=== PATIENT | male | born 1935 | race Caucasian/White ===

== ENCOUNTER 2017-09-09 13:10 | Emergency (ER) | payer OTHER, MEDICAID ==
[~2017-09-09] VITALS: Ht 172.7 cm; Wt 117.9 kg
[~2017-09-09 13:10] MED LIST: ALLO100T PO; AMLO5TAB92 PO; DITXL5 PO; DIVA500T7 PO; GABA-531 PO; GLIM2TAB2 PO; LEVO100T9 PO; LIP10 PO; MIRA50TA PO; SITA100T7 PO; TAMS-11 PO
[2017-09-09 13:14] VITALS: BP_SYST 128
[2017-09-09] MEDS ORDERED: LEVOFLOXACIN 500 MG/D5W 100 ML IV ONE (13:30)
[2017-09-09] MEDS ORDERED: ALBUTEROL SULFATE 0.083% 2.5 MG/3 ML VIAL.NEB INH ONE (13:30)
[2017-09-09 14:25] LABS: BASOPHILS % (AUTO) 0.3 % (0.0-2.0); EOSINOPHILS # (AUTO) 0.1 K/uL (0.0-0.4); EOSINOPHILS % (AUTO) 1.4 % (0.0-4.0); HEMATOCRIT 38.6 % (36-54); HEMOGLOBIN 12.8 g/dL (14.0-18.0); LYMPHOCYTES # (AUTO) 2.6 K/uL (1.0-5.5); LYMPHOCYTES % (AUTO) 37.2 % (20.5-51.5); MEAN CORPUSCULAR HEMOGLOBIN 31 pg (27-31); MEAN CORPUSCULAR HGB CONC 33 % (32-36); MEAN CORPUSCULAR VOLUME 93 fL (79.0-98.0); MONOCYTES # (AUTO) 0.7 K/uL (0.0-1.0); MONOCYTES % (AUTO) 9.6 % (1.7-9.3); NEUTROPHILS # (AUTO) 3.7 K/uL (1.8-7.7); NEUTROPHILS % (AUTO) 51.5 % (40.0-70.0); PLATELET COUNT (AUTO) 77 K/uL (130-430); RED BLOOD CELL COUNT(AUTO) 4.14 MIL/uL (4.2-6.2); RED CELL DISTRIBUTION WIDTH 13.8 % (9.0-15.0); WHITE BLOOD COUNT (AUTO) 7.1 K/uL (4.8-10.8)
[2017-09-09 14:46] LABS: INR 1.2 (0.80-1.20); PROTHROMBIN TIME 11.9 SECS (9.5-12.5)
[2017-09-09 14:57] LABS: ANION GAP 7 (5-15); CALCIUM 8.8 mg/dL (8.4-11.0); CHLORIDE 105 mmol/L (98-107); CREATININE 1.18 mg/dL (0.55-1.30); GLUCOSE 178 mg/dL (70-99); POTASSIUM 3.3 mmol/L (3.5-5.1); SODIUM SERUM 138 mmol/L (136-145); UREA NITROGEN, BLOOD 21 mg/dL (8-21)
[2017-09-09 15:01] LABS: ALANINE AMINOTRANSFERASE 34 U/L (12-78); ALBUMIN 3.5 g/dL (3.4-4.8); ASPARTATE AMINOTRANSFERASE 26 U/L (10-37); TOTAL BILIRUBIN 0.3 mg/dL (0.0-1.0)
[2017-09-09] MEDS ORDERED: POTASSIUM CHLORIDE 20 MEQ TAB.PRT.SR PO ONE (15:45)
[2017-09-09 16:20] VITALS: BP_SYST 125
== END 2017-09-09 16:20 | disposition home or self-care (01) ==
LOC: SED 13:10
DX: R53.1 Weakness (principal); F41.9 Anxiety disorder, unspecified; G47.9 Sleep disorder, unspecified; J44.9 Chronic obstructive pulmonary disease, unspecified; E11.9 Type 2 diabetes mellitus without complications; I10 Essential (primary) hypertension; Z86.73 Personal history of transient ischemic attack (TIA), and cerebral infarction without residual deficits; Z79.899 Other long term (current) drug therapy
CPT/HCPCS: 36415; 71045; 80053; 83605; 83880; 84484; 85025; 85610; 86710; 87040; 93005; 94640; 96365; 99285; J1956

== ENCOUNTER 2017-10-01 14:34 | Emergency (ER) | payer OTHER, MEDICAID ==
[~2017-10-01] VITALS: Ht 177.8 cm; Wt 117.9 kg
[2017-10-01 15:01] VITALS: BP_SYST 146
[2017-10-01 16:15] VITALS: BP_SYST 146
[2017-10-01] MEDS ORDERED: LORazepam 1 MG TABLET PO ONE (16:30)
== END 2017-10-01 16:15 | disposition home or self-care (01) ==
LOC: SED 14:34
DX: D16.4 Benign neoplasm of bones of skull and face (principal); F41.9 Anxiety disorder, unspecified; J44.9 Chronic obstructive pulmonary disease, unspecified; E11.9 Type 2 diabetes mellitus without complications; I10 Essential (primary) hypertension; Z86.73 Personal history of transient ischemic attack (TIA), and cerebral infarction without residual deficits; Z79.899 Other long term (current) drug therapy
CPT/HCPCS: 82962; 99283

== ENCOUNTER 2018-03-18 22:45 | Inpatient (IN) | payer OTHER, MEDICAID ==
[~2018-03-18] VITALS: Ht 175.3 cm; Wt 123.4 kg
[~2018-03-18 22:45] MED LIST changes: +SITA100T11 PO; -SITA100T7 PO
[2018-03-18 22:46] VITALS: BP_SYST 156
--- NOTE | 2018-03-18 22:46 | NUR ---
ER at [facility] examining patient.
[2018-03-18] MEDS ORDERED: KETOROLAC TROMETHAMINE 30 MG VIAL IVP ONE (23:00)
--- NOTE | 2018-03-18 23:00 | NUR ---
Patient to ER bed 02 to gown for evaluation. Side rails up.
[2018-03-18 23:09] LABS: BASOPHILS # (AUTO) 0.1 K/uL (0.0-0.2); BASOPHILS % (AUTO) 1.4 % (0.0-2.0); EOSINOPHILS # (AUTO) 0.2 K/uL (0.0-0.4); EOSINOPHILS % (AUTO) 3.1 % (0.0-4.0); HEMATOCRIT 40.2 % (36-54); HEMOGLOBIN 13.5 g/dL (14.0-18.0); LYMPHOCYTES # (AUTO) 2.1 K/uL (1.0-5.5); MEAN CORPUSCULAR HEMOGLOBIN 32 pg (27-31); MEAN CORPUSCULAR HGB CONC 34 % (32-36); MEAN CORPUSCULAR VOLUME 95 fL (79.0-98.0); MONOCYTES # (AUTO) 0.6 K/uL (0.0-1.0); MONOCYTES % (AUTO) 9.5 % (1.7-9.3); NEUTROPHILS # (AUTO) 3.8 K/uL (1.8-7.7); PLATELET COUNT (AUTO) 89 K/uL (130-430); RED BLOOD CELL COUNT(AUTO) 4.22 MIL/uL (4.2-6.2); RED CELL DISTRIBUTION WIDTH 13.1 % (9.0-15.0); WHITE BLOOD COUNT (AUTO) 6.8 K/uL (4.8-10.8)
--- NOTE | 2018-03-18 23:15 | NUR ---
Awake, alert. Denies pain at this time. States he is here because he has insomnia and has difficulty sleeping, his balance is off, his feet are swollen.
[2018-03-18 23:21] LABS: ANION GAP 8 (5-15); CALCIUM 8.8 mg/dL (8.4-11.0); CHLORIDE 106 mmol/L (98-107); POTASSIUM 4.1 mmol/L (3.5-5.1); SODIUM SERUM 141 mmol/L (136-145); UREA NITROGEN, BLOOD 32 mg/dL (8-21)
[2018-03-18 23:27] LABS: ALANINE AMINOTRANSFERASE 37 U/L (12-78); ALBUMIN 3.8 g/dL (3.4-4.8); ASPARTATE AMINOTRANSFERASE 26 U/L (10-37); LIPASE 125 U/L (73-393); TOTAL BILIRUBIN 0.4 mg/dL (0.0-1.0)
[2018-03-18 23:29] LABS: GLUCOSE 455 mg/dL (70-99)
[2018-03-18] MEDS ORDERED: NACL 0.9% 1,000 ML IV ONE (23:30)
[2018-03-18] MEDS ORDERED: INSULIN REGULAR, HUMAN 10 UNITS/0.1 ML INJ IVP ONE (23:30)
[2018-03-18 23:36] LABS: ALCOHOL, BLOOD < 3 mg/dL (<10)
[2018-03-19] MEDS ORDERED: VALS160T2 PO ×2 (00:30→20:06)
[2018-03-19] MEDS ORDERED: ASPI-1155 PO (00:30)
[2018-03-19] MEDS ORDERED: FLUT16SP16 NS (00:30)
[2018-03-19] MEDS ORDERED: NOR10 PO (00:30)
--- NOTE | 2018-03-19 00:30 | NUR ---
Medication reconciliation completed with information provided by [facility] . Any prior medication reconciliation on file was reviewed and corrected.
[2018-03-19] MEDS ORDERED: NACL 0.9% 1,000 ML IV SCH (00:31)
--- NOTE | 2018-03-19 00:35 | NUR ---
Patient will be admitted to care of Dr. Sales. Admitted to Telemetry unit. Will go to room 116 B. Belongings list completed. Summary report printed. Report will be given at bedside.
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
--- NOTE | 2018-03-19 01:54 | NUR ---
ADMISSION NOTE Received patient from ER via gurney. Patient admitted with diagnosis of Diabetes Out of Control. Patient is awake, alert, oriented X 4. Patient oriented to hospital room, call light, toileting, pain management and safety-teach back done. Patient informed that TANESHA Andrade will be primary nurse and that their room number is 116B. Personal belongings checked and Belongings List documented. Call light within reach.
--- NOTE | 2018-03-19 02:00 | NUR ---
Transferred to 116-B via [facility], accompanied by .
--- NOTE | 2018-03-19 02:45 | NUR ---
BLOOD PRESSURE BP 189/101, HR 78 left arm, 218/119, HR [address] right arm. Denies pain. Dr. Sales notified with new orders given.
[2018-03-19] MEDS ORDERED: cloNIDine HCL 0.1 MG TABLET PO ONE (03:00)
[2018-03-19] MEDS ORDERED: cloNIDine HCL 0.2 MG TABLET ONE (03:09)
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
[2018-03-19 03:18] VITALS: BP_SYST 196
--- NOTE | 2018-03-19 04:42 | NUR ---
Rounds Resting quietly, easily aroused. Denies pain or discomfort. BP 158/86, HR 66. Call light within reach. Bed in low, locked position. Bed alarm on.
--- NOTE | 2018-03-19 06:09 | NUR ---
Blood sugar Fingerstick checked = 210 mg/dL. No s/s of hypo/hyperglycemia.
--- NOTE | 2018-03-19 06:21 | NUR ---
PAGED PAGED ,[facility] AT [phone] SPOKE WITH .
[2018-03-19 06:46] LABS: EOSINOPHILS # (AUTO) 0.2 K/uL (0.0-0.4); HEMOGLOBIN 12.5 g/dL (14.0-18.0)
[2018-03-19 06:51] LABS: ALANINE AMINOTRANSFERASE 35 U/L (12-78); ALBUMIN 3.5 g/dL (3.4-4.8); ANION GAP 3 (5-15); ASPARTATE AMINOTRANSFERASE 24 U/L (10-37); CALCIUM 8.8 mg/dL (8.4-11.0); CHLORIDE 105 mmol/L (98-107); CREATININE 1.32 mg/dL (0.55-1.30); GLUCOSE 233 mg/dL (70-99); SODIUM SERUM 139 mmol/L (136-145); TOTAL BILIRUBIN 0.6 mg/dL (0.0-1.0); UREA NITROGEN, BLOOD 24 mg/dL (8-21)
[2018-03-19 06:59] LABS: BASOPHILS % (AUTO) 0.7 % (0.0-2.0); HEMATOCRIT 36.7 % (36-54); LYMPHOCYTES # (AUTO) 2.8 K/uL (1.0-5.5); LYMPHOCYTES % (AUTO) 40.5 % (20.5-51.5); MEAN CORPUSCULAR HEMOGLOBIN 33 pg (27-31); MEAN CORPUSCULAR HGB CONC 34 % (32-36); MEAN CORPUSCULAR VOLUME 96 fL (79.0-98.0); MONOCYTES # (AUTO) 0.5 K/uL (0.0-1.0); MONOCYTES % (AUTO) 7.8 % (1.7-9.3); NEUTROPHILS # (AUTO) 3.5 K/uL (1.8-7.7); PLATELET COUNT (AUTO) 80 K/uL (130-430); RED BLOOD CELL COUNT(AUTO) 3.82 MIL/uL (4.2-6.2); RED CELL DISTRIBUTION WIDTH 13.2 % (9.0-15.0)
[2018-03-19] MEDS: INSULIN REGULAR, HUMAN 100 UNITS/ML, 10 ML VIAL (novoLIN R) SUBCUT PRN ×4 (07:01→20:27)
--- NOTE | 2018-03-19 07:35 | NUR ---
Closing Note Resting in bed, no apparent distress. Denies pain or discomfort. Ambulates to bathroom with assist out of bed, Gait stable. Fingerstick 210 mg/dL, 4 units Regular insulin given. Received critical report from lab for second troponin of 0.067. Dr. Sales notified with new order given. All protocols effective. Call light in place and in reach. Bed alarm on. Will give report to oncoming shift RN.
--- NOTE | 2018-03-19 07:40 | NUR ---
CONSULTATION PAGED REASON FOR CONSULTATION:ELEVATED TROPONIN WAS CONSULT CALLED?Y PERSON WHO WAS NOTIFIED:ASHLEE CONSULTING PHYSICIAN:GIGI RETANA HOSPITALIST SPECIALTY:CARDIO HOSPITALIST PHONE NUMBER:[phone] ORDERING PHYSICIAN:DR.[facility] CORPORATION[facility]HMAN
--- NOTE | 2018-03-19 07:55 | NUR ---
AM rounds patient resting in bed, a/ox4, denies pain, assessment complete, IV line is patent and infusing well, educated the patient on plan of care and call light system and to call for any assistance, he verbalized understanding, bed in lowest position, two side rails up, bed alarm on, call light placed within reach, fall and aspiration precautions in place.
[2018-03-19 08:26] VITALS: BP_SYST 160
[2018-03-19] MEDS: METOPROLOL TARTRATE 50 MG TABLET PO SCH ×2 (09:06→20:22)
--- NOTE | 2018-03-19 09:06 | NUR ---
Medication patient resting in bed, awake, denies pain, educated on medication uses and potential side effects, patient verbalized understanding and tolerated well, no other need at this time, bed in lowest position, two side rails up, bed alarm on, call light within reach, fall and aspiration precautions in place.
[2018-03-19] MEDS ORDERED: MAGNESIUM SULFATE 50 ML IV PRN (11:45)
[2018-03-19] MEDS ORDERED: ONDANSETRON HCL 4 MG/2 ML VIAL IVP PRN (11:45)
[2018-03-19] MEDS ORDERED: POTASSIUM CHLORIDE 20 MEQ TAB.PRT.SR PO PRN (11:45)
[2018-03-19] MEDS ORDERED: MUPIROCIN 2% TOPICAL OINTMENT 22 GM NS PRN (11:45)
[2018-03-19] MEDS ORDERED: ZOLPIDEM TARTRATE 5 MG TABLET PO PRN (11:45)
[2018-03-19] MEDS ORDERED: DOCUSATE SODIUM 100 MG CAPSULE PO PRN (11:45)
[2018-03-19] MEDS ORDERED: MORPHINE 2 MG/ML INJ. SYRINGE IVP PRN ×2 (11:45)
[2018-03-19] MEDS ORDERED: ACETAMINOPHEN 325 MG TABLET PO PRN (11:45)
[2018-03-19] MEDS ORDERED: LORazepam 2 MG/ML VIAL IVP PRN (11:45)
[2018-03-19 12:00] VITALS: BP_SYST 145
--- NOTE | 2018-03-19 12:00 | NUR ---
Dr. Sales rounds assessed patient at bedside, orders received, will follow up.
--- NOTE | 2018-03-19 12:50 | NUR ---
RN rounds/blood glucose patient resting in bed, awake, denies pain, insulin coverage provided per MD orders, patient tolerated well, bed in lowest position, two side rails up, bed alarm on, call light within reach, fall and aspiration precautions in place.
--- NOTE | 2018-03-19 13:58 | NUR ---
Ativan patient resting in bed, requesting Ativan to relax/sleep, educated him on Ativan uses and potential side effects, requested the patient to please call for assistance to the restroom, he verbalized understanding and tolerated well, IV line is patent and infusing well, continuing to monitor the patient, bed in lowest position, three side rails up, bed alarm on, call light placed within reach, fall and aspiration.
--- NOTE | 2018-03-19 15:00 | NUR ---
Patient out of bed trying to use the urinal, bed alarm on ringing, assisted the patient and returned him to bed, re-educated the patient to call for assistance, he verbalized understanding, bed alarm re-set, bed in lowest position, two side rails up, call light placed within easy reach, continuing to monitor.
[2018-03-19 16:00] VITALS: BP_SYST 148
--- NOTE | 2018-03-19 16:54 | NUR ---
Patient out of bed trying to use the urinal, bed alarm on ringing, patient had removed his gown, IV line and tele-monitor, assisted the patient and returned him to bed, re-educated the patient to call for assistance, he verbalized understanding, bed alarm re-set, bed in lowest position, two side rails up, call light placed within easy reach, continuing to monitor.
--- NOTE | 2018-03-19 17:27 | NUR ---
RN rounds/blood glucose patient now resting in bed, eyes closed, breathing is even and unlabored, no distress, easy to wake, blood glucose checked and insulin coverage provided per MD orders, no other needs at this time, bed in lowest position, three side rails up, bed alarm on, moved patient bed closer to nursing station, continuing to monitor, call light placed within reach, fall and aspiration precautions in place.
--- NOTE | 2018-03-19 18:18 | NUR ---
Patient room changed again due to patient continuing to get out bed without assistance, patient has unsteady gait, moved closer to the nurse's station, continuing to monitor.
--- NOTE | 2018-03-19 18:19 | NUR ---
Closing note patient resting in bed, awake, eating dinner, all needs met, will endorse report to NOC shift nurse, bed in lowest position, three side rails up, bed alarm on, bed close to nurse's station, fall and aspiration precautions in place.
--- NOTE | 2018-03-19 19:25 | NUR ---
ROUNDS PATIENT RESTING COMFORTABLY IN BED, NOT IN DISTRESS, VITALS STABLE, DENIES ANY PAIN AND DISCOMFORT AT THIS TIME. ASSESSMENT DONE AND DOCUMENTED. SEE FLOWSHEET. NEEDS ATTENDED TO. SAFETY AND FALL PRECAUTION MEASURES IN PLACED. BED IN LOW AND LOCKED POSITION. BED ALARM ON. SIDERAILS UP X3. CALL LIGHT PLACED WITHIN REACH.
[2018-03-19 20:00] VITALS: BP_SYST 156
[2018-03-19] MEDS ORDERED: GLIM2TAB2 PO (20:06)
[2018-03-19] MEDS ORDERED: ALLO100T PO (20:06)
[2018-03-19] MEDS ORDERED: LEVO100T9 PO (20:06)
[2018-03-19] MEDS ORDERED: LIP20 PO (20:06)
[2018-03-19] MEDS ORDERED: SERT-131 PO (20:06)
[2018-03-19] MEDS ORDERED: TAMS-11 PO (20:06)
[2018-03-19] MEDS ORDERED: OXYB15TA PO (20:06)
[2018-03-19] MEDS ORDERED: MIRA50TA PO (20:06)
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
[2018-03-19] MEDS: GABAPENTIN 300 MG CAPSULE PO SCH (20:22)
[2018-03-19] MEDS: DIVALPROEX SODIUM 500 MG TABLET( DEPAKOTE) PO SCH (20:22)
[2018-03-19] MEDS ORDERED: HEPARIN SODIUM,PORCINE 5000 UNITS/ML VIAL SUBCUT SCH (21:00)
--- NOTE | 2018-03-19 21:10 | NUR ---
ACCU CHECK ACCU CHECK DONE, BLOOD SUGAR 248 WITH 4 UNITS OF REGULAR INSULIN SUBCU GIVEN ORDERED PER SLIDING SCALE. WILL CONTINUE TO MONITOR.
--- NOTE | 2018-03-20 00:14 | NUR ---
PATIENT RESTING: Patient resting quietly. No acute distress noted. Vital signs within normal range.
--- NOTE | 2018-03-20 02:16 | NUR ---
ROUNDS PATIENT ASLEEP, VITALS STABLE, NO PAIN AND DISCOMFORT NOTED. WILL CONTINUE TO MONITOR.
--- NOTE | 2018-03-20 04:05 | NUR ---
PATIENT RESTING: Patient resting quietly. No acute distress noted. Vital signs within normal range.
[2018-03-20] MEDS: INSULIN REGULAR, HUMAN 100 UNITS/ML, 10 ML VIAL (novoLIN R) SUBCUT PRN ×2 (06:32→11:34)
--- NOTE | 2018-03-20 06:50 | NUR ---
CLOSING NOTES PATIENT ASLEEP AT THIS TIME BUT EASILY AROUSABLE. VITALS STABLE, DENIES ANY PAIN AND DISCOMFORT AT THIS TIME. ALL NEEDS ATTENDED TO. SAFETY AND FALL PRECAUTION MEASURES MAINTAINED. CALL LIGHT PLACED WITHIN REACH.
[2018-03-20 06:57] LABS: ALANINE AMINOTRANSFERASE 44 U/L (12-78); ALBUMIN 3.7 g/dL (3.4-4.8); ANION GAP 3 (5-15); ASPARTATE AMINOTRANSFERASE 39 U/L (10-37); CALCIUM 9.3 mg/dL (8.4-11.0); CHLORIDE 102 mmol/L (98-107); CHOLESTEROL 124 mg/dL (<200); CREATININE 1.24 mg/dL (0.55-1.30); GLUCOSE 180 mg/dL (70-99); HDL CHOLESTEROL 49 mg/dL (>45); LDL CHOLESTEROL 56 mg/dL (<100); POTASSIUM 4.2 mmol/L (3.5-5.1); SODIUM SERUM 138 mmol/L (136-145); THYROID STIMULATING HORMONE 1.48 uIu/mL (0.34-4.82); TOTAL BILIRUBIN 0.7 mg/dL (0.0-1.0); TRIGLYCERIDES 145 mg/dL (30-150); UREA NITROGEN, BLOOD 23 mg/dL (8-21)
[2018-03-20] MEDS ORDERED: LEVOTHYROXINE SODIUM 0.1 MG TABLET PO SCH (07:00)
[2018-03-20 07:10] LABS: BASOPHILS # (AUTO) 0.1 K/uL (0.0-0.2); BASOPHILS % (AUTO) 1.1 % (0.0-2.0); EOSINOPHILS # (AUTO) 0.3 K/uL (0.0-0.4); HEMOGLOBIN 13.4 g/dL (14.0-18.0); LYMPHOCYTES # (AUTO) 2.9 K/uL (1.0-5.5); LYMPHOCYTES % (AUTO) 35.5 % (20.5-51.5); MEAN CORPUSCULAR HEMOGLOBIN 33 pg (27-31); MEAN CORPUSCULAR HGB CONC 34 % (32-36); MEAN CORPUSCULAR VOLUME 97 fL (79.0-98.0); MONOCYTES # (AUTO) 0.8 K/uL (0.0-1.0); MONOCYTES % (AUTO) 9.5 % (1.7-9.3); NEUTROPHILS % (AUTO) 49.9 % (40.0-70.0); RED BLOOD CELL COUNT(AUTO) 4.11 MIL/uL (4.2-6.2); RED CELL DISTRIBUTION WIDTH 13.1 % (9.0-15.0); WHITE BLOOD COUNT (AUTO) 8.1 K/uL (4.8-10.8)
[2018-03-20 08:00] VITALS: BP_SYST 149
--- NOTE | 2018-03-20 08:00 | NUR ---
Opening Note Report received from the [facility] nurse. Patient is currently resting in bed. Blood sugar this morning was 162. IV is on the right hand 22g running NS@50. Fall precautions are in place. Call light is within reach and bed is in low position. Will continue to closely monitor.
[2018-03-20 08:15] LABS: PLATELET COUNT (AUTO) 85 K/uL (130-430)
[2018-03-20] MEDS ORDERED: GLIMEPIRIDE 2 MG TABLET PO SCH (09:00)
[2018-03-20] MEDS ORDERED: amLODIPine BESYLATE 10 MG TABLET PO SCH (09:00)
[2018-03-20] MEDS ORDERED: ASPIRIN 81 MG TAB.CHEW PO SCH (09:00)
[2018-03-20] MEDS ORDERED: TAMSULOSIN HCL 0.4 MG CAP PO SCH ×2 (09:00→21:00)
[2018-03-20] MEDS ORDERED: ATORVASTATIN 10 MG TABLET PO SCH (09:00)
[2018-03-20] MEDS ORDERED: ALLOPURINOL 100 MG TABLET (ZYLOPRIM) PO SCH (09:00)
[2018-03-20] MEDS: GABAPENTIN 300 MG CAPSULE PO SCH (09:29)
[2018-03-20] MEDS: DIVALPROEX SODIUM 500 MG TABLET( DEPAKOTE) PO SCH (09:29)
[2018-03-20] MEDS: METOPROLOL TARTRATE 50 MG TABLET PO SCH (09:30)
--- NOTE | 2018-03-20 09:30 | NUR ---
Pain med given Gave the patient tylenol for headache. The patient stated that he is not allergic to Tylenol.
--- NOTE | 2018-03-20 09:45 | NUR ---
Nutrition Update En Scale 17 noted. Pt admitted for DM out of control. Diet: [facility] BMI: 40.2 kg/m2 RD to follow per nutrition care standards.
--- NOTE | 2018-03-20 10:20 | NUR ---
Rounds Patient is currently resting in bed. Call light is within reach.
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
[2018-03-20 12:00] VITALS: BP_SYST 165
[2018-03-20] MEDS ORDERED: SERTRALINE HCL 50 MG TABLET PO ONE (12:00)
--- NOTE | 2018-03-20 12:16 | NUR ---
MD Rounds Dr. Sales rounded on the patient. stated that the patient my be discharged home with home health.
[2018-03-20 12:54] VITALS: BP_SYST 149
--- NOTE | 2018-03-20 14:15 | NUR ---
Transition of Care Note All transition of care instructions were provided to the patient and his . Both verbalized understanding of all. IV and ID band were removed. Patient left the unit in stable condition.
[2018-03-21] MEDS ORDERED: LEVOTHYROXINE SODIUM 0.1 MG TABLET PO SCH (07:00)
[2018-03-21] MEDS ORDERED: OXYBUTYNIN CHLORIDE 5 MG TABLET PO SCH (09:00)
[2018-03-21] MEDS ORDERED: ALLOPURINOL 100 MG TABLET (ZYLOPRIM) PO SCH (09:00)
[2018-03-21] MEDS ORDERED: SERTRALINE HCL 50 MG TABLET PO SCH (09:00)
== END 2018-03-20 13:55 | disposition home health service (06) | DRG 280 ==
LOC: SED 22:45 → STU 03-19 00:31
PROVIDERS: ADMIT General Practice; ATTEND General Practice
DX: I21.A1 Myocardial infarction type 2 (principal); N17.0 Acute kidney failure with tubular necrosis; J98.11 Atelectasis; Z68.41 Body mass index [BMI] 40.0-44.9, adult; I10 Essential (primary) hypertension; D69.6 Thrombocytopenia, unspecified; E03.9 Hypothyroidism, unspecified; E11.40 Type 2 diabetes mellitus with diabetic neuropathy, unspecified; E11.65 Type 2 diabetes mellitus with hyperglycemia; E66.01 Morbid (severe) obesity due to excess calories; E78.5 Hyperlipidemia, unspecified; G47.00 Insomnia, unspecified; M10.9 Gout, unspecified; N40.0 Benign prostatic hyperplasia without lower urinary tract symptoms; Z79.899 Other long term (current) drug therapy; Z86.73 Personal history of transient ischemic attack (TIA), and cerebral infarction without residual deficits; Z91.14 Patient's other noncompliance with medication regimen; Z90.49 Acquired absence of other specified parts of digestive tract; Z93.3 Colostomy status; Z87.891 Personal history of nicotine dependence; Z79.84 Long term (current) use of oral hypoglycemic drugs
CPT/HCPCS: 36415; 71045; 80053; 80061; 82962; 83036; 83690-TC; 83735-TC; 83880; 84443-TC; 84484; 85025; 85730-TC; 93005; 96361; 96374; 96375; 97116-GP; 99285; G0482; J1815; J1885; J2060; J7030

== ENCOUNTER 2018-09-18 16:55 | Inpatient (IN) | payer OTHER, MEDICAID ==
[~2018-09-18] VITALS: Ht 175.3 cm; Wt 120.2 kg
[~2018-09-18 16:55] MED LIST changes: -AMLO5TAB92 PO; +ASPI-1155 PO; -DITXL5 PO; +DIVA-50 PO; -DIVA500T7 PO; +FLUT16SP16 NS; -GABA-531 PO; -LIP10 PO; +LIP20 PO; +NOR10 PO; +OXYB15TA PO; +SERT-131 PO; -SITA100T11 PO; +VALS160T2 PO
--- NOTE | 2018-09-18 17:10 | NUR ---
Placed in room 03 via wheelchair. Placed on radiation monitor, blood pressure machine and pulse oximeter. To gown for exam. Side rails up.
[2018-09-18 17:12] VITALS: BP_SYST 146
--- NOTE | 2018-09-18 17:15 | NUR ---
Note undone in ED - 09/18/18 at 1913 by KINZA Patient will be admitted to care of DR ROGERS. Admitted to TELE unit. Will go to room 134A. Belongings list completed. Summary report printed. Report will be given at bedside. Transfer to TELE via ACLS protocol. Licensed nurse present. IV present no signs or symptoms of infiltration.
--- NOTE | 2018-09-18 17:29 | NUR ---
MARIA C DE LA CRUZ at bedside examining patient.
--- NOTE | 2018-09-18 17:30 | NUR ---
PATIENT COMPLAINING OF DIZZINESS. PATIENT CAME IN BECAUSE HE FELT HIS SUGAR WAS HIGH. PATIENT SAID HE FELL LAST WEEK AND WENT TO MD. DR PUT CREAM AND BANDAGE PER PATIENT. DR SAID HE HAD SOME CLICKING IN NECK BUT DR SAID IT WAS OKAY. PATIENT COMPLAINING OF DULL PAIN 7/10 IN FINGER RADIATING TO SHOULDER. PATIENT NOT COMPLAINING OF SHORTNESS OF BREATH OR VOMITING. PATIENT SAID HE FEELS LITTLE NAUSEA. PATIENT ALERT AND ORIENTED X4.
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
--- NOTE | 2018-09-18 17:32 | NUR ---
BLOOD SUGAR TAKEN AND WAS 413. DR PARRISH.
[2018-09-18] MEDS ORDERED: INSULIN REGULAR, HUMAN 10 UNITS/0.1 ML INJ SUBCUT ONE (17:45)
[2018-09-18 18:00] LABS: ANION GAP 8 (5-15); CALCIUM 8.7 mg/dL (8.4-11.0); CHLORIDE 100 mmol/L (98-107); POTASSIUM 4.2 mmol/L (3.5-5.1); SODIUM SERUM 137 mmol/L (136-145); UREA NITROGEN, BLOOD 27 mg/dL (8-21)
[2018-09-18 18:07] LABS: RED BLOOD CELL COUNT(AUTO) 4.16 MIL/uL (4.2-6.2)
[2018-09-18 18:08] LABS: ALANINE AMINOTRANSFERASE 29 U/L (12-78); ALBUMIN 3.5 g/dL (3.4-4.8); ASPARTATE AMINOTRANSFERASE 25 U/L (10-37); HEMATOCRIT 40.1 % (36-54); HEMOGLOBIN 13.3 g/dL (14.0-18.0); LYMPHOCYTES % (AUTO) 33.5 % (20.5-51.5); MEAN CORPUSCULAR HEMOGLOBIN 32 pg (27-31); MEAN CORPUSCULAR HGB CONC 33 % (32-36); MEAN CORPUSCULAR VOLUME 96 fL (79.0-98.0); NEUTROPHILS % (AUTO) 53.4 % (40.0-70.0); PLATELET COUNT (AUTO) 82 K/uL (130-430); RED CELL DISTRIBUTION WIDTH 13.7 % (9.0-15.0); TOTAL BILIRUBIN 0.3 mg/dL (0.0-1.0)
[2018-09-18 18:09] LABS: BASOPHILS % (AUTO) 0.6 % (0.0-2.0); EOSINOPHILS # (AUTO) 0.2 K/uL (0.0-0.4); EOSINOPHILS % (AUTO) 3.1 % (0.0-4.0); LYMPHOCYTES # (AUTO) 2.4 K/uL (1.0-5.5); MONOCYTES # (AUTO) 0.7 K/uL (0.0-1.0); MONOCYTES % (AUTO) 9.4 % (1.7-9.3); NEUTROPHILS # (AUTO) 3.8 K/uL (1.8-7.7)
[2018-09-18 18:10] LABS: GLUCOSE 412 mg/dL (70-99)
[2018-09-18] MEDS ORDERED: NACL 0.9% 1,000 ML IV ONE (18:15)
[2018-09-18] MEDS ORDERED: BENZ-16 PO (18:37)
[2018-09-18] MEDS ORDERED: OXYB5TAB11 PO (18:37)
[2018-09-18] MEDS ORDERED: lomotil PO (18:37)
[2018-09-18] MEDS ORDERED: GLIM2TAB2 PO (18:37)
[2018-09-18] MEDS ORDERED: IRBE150T48 PO (18:37)
[2018-09-18] MEDS ORDERED: ALLO100T PO (18:37)
[2018-09-18] MEDS ORDERED: SERT100T PO (18:37)
[2018-09-18] MEDS ORDERED: DIVA500T4 PO (18:37)
--- NOTE | 2018-09-18 18:39 | NUR ---
Medication reconciliation completed with information provided by pt. Any prior medication reconciliation on file was reviewed and corrected.
--- NOTE | 2018-09-18 18:54 | NUR ---
MD AWARE OF PATIENT'S ELEVATED BLOOD PRESSURE AND PAIN.
--- NOTE | 2018-09-18 19:13 | NUR ---
Patient will be admitted to care of DR ROGERS. Admitted to TELE unit. Will go to room 134A. Belongings list completed. Summary report printed. Report will be given at bedside. Transfer to TELE via ACLS protocol. Licensed nurse present. IV present no signs or symptoms of infiltration.
--- NOTE | 2018-09-18 19:25 | NUR ---
ADMISSION NOTE Received patient from ER via gurney. Patient admitted with diagnosis of Uncontrolled Diabetes. Patient is awake, alert, oriented X 3. Patient oriented to hospital room, call light, toileting, pain management and safety-teach back done. Patient informed that TANESHA Garibay will be primary nurse and that their room number is 134A. Personal belongings checked and Belongings List documented. Call light within reach.
[2018-09-18 19:27] LABS: BILIRUBIN,URINE NEGATIVE (NEGATIVE); BLOOD, URINE NEGATIVE (NEGATIVE); CLARITY/URINE CLEAR (CLEAR); COLOR,URINE YELLOW (YELLOW); GLUCOSE,URINE 3+ (NEGATIVE); KETONES,URINE NEGATIVE (NEGATIVE); LEUKOCYTE ESTERASE ,URINE NEGATIVE (NEGATIVE); NITRITE, URINE NEGATIVE (NEGATIVE); PH,URINE 6.5 (5.0-8.0); PROTEIN URINE TRACE (NEGATIVE); UROBILINOGEN,URINE 0.2 (0.2-1.0)
[2018-09-18] MEDS ORDERED: POTASSIUM CHLORIDE 20 MEQ TAB.PRT.SR PO PRN (19:30)
[2018-09-18] MEDS ORDERED: MUPIROCIN 2% TOPICAL OINTMENT 22 GM NS PRN (19:30)
[2018-09-18] MEDS ORDERED: DOCUSATE SODIUM 100 MG CAPSULE PO PRN (19:30)
[2018-09-18] MEDS ORDERED: OXYBUTYNIN CHLORIDE 5 MG TABLET PO PRN (19:30)
[2018-09-18] MEDS ORDERED: ONDANSETRON HCL 4 MG/2 ML VIAL IVP PRN (19:30)
[2018-09-18] MEDS ORDERED: DEXTROSE 50% JECT 50 ML DISP.SYRIN IVP PRN (19:30)
[2018-09-18] MEDS ORDERED: MAGNESIUM SULFATE 50 ML IV PRN (19:30)
[2018-09-18] MEDS ORDERED: BENZONATATE 100 MG CAPSULE (TESSALON) PO PRN (19:30)
[2018-09-18 19:39] LABS: BACTERIA,URINE FEW /HPF (None Seen); RBC,URINE 0-3 /HPF (0-3); WBC,URINE 0-3 /HPF (0-3)
[2018-09-18] MEDS: LISINOPRIL 10 MG TABLET (PRINIVIL) PO SCH (19:45)
[2018-09-18 19:47] VITALS: BP_SYST 145
[2018-09-18] MEDS: INSULIN ASPART 100 UNITS/ML, 10 ML VIAL (NovoLOG) SUBCUT PRN (20:55)
--- NOTE | 2018-09-18 20:55 | NUR ---
ACCROSHAN PT HAS BLOOD SUGAR OF 326. 8 UNITS OF INSULIN ASPART ADMINISTERED PER SLIDING SCALE. PT EDUCATED REGARDING MEDICATION AND POTENTIAL SIDE EFFECTS. WILL MONITOR.
[2018-09-18] MEDS: ALLOPURINOL 100 MG TABLET (ZYLOPRIM) PO SCH (20:56)
[2018-09-18] MEDS: ATORVASTATIN 20 MG TABLET PO SCH (20:56)
[2018-09-18] MEDS ORDERED: VIT1TABL83 PO (21:00)
[2018-09-18] MEDS ORDERED: OMEG10006 PO (21:00)
[2018-09-18] MEDS ORDERED: TURM538C PO (21:00)
[2018-09-18] MEDS ORDERED: LOM2.5 PO (21:32)
[2018-09-18] MEDS: NACL 0.9% 1,000 ML IV SCH (22:01)
[2018-09-18] MEDS ORDERED: HEPARIN SODIUM,PORCINE 5000 UNITS/ML VIAL SUBCUT SCH (23:30)
[2018-09-18] MEDS ORDERED: DIVALPROEX SODIUM 500 MG TAB.SR.24H (DEPAKOTE ER) PO SCH (23:30)
[2018-09-18] MEDS: ZOLPIDEM TARTRATE 5 MG TABLET PO PRN (23:33)
--- NOTE | 2018-09-18 23:33 | NUR ---
INSOMNIA/AMBIEN ADMINISTERED PT REPORTING INSOMNIA, REQUESTING SLEEP AID. AMBIEN 5 MG PO ADMINISTERED. PT EDUCATED REGARDING MEDICATION AND POTENTIAL SIDE EFFECTS. PT VERBALIZED UNDERSTANDING. PT ENCOURAGED TO CALL FOR ASSISTANCE. SAFETY PRECAUTIONS IN PLACE: BED IN LOWEST POSITION, CALL LIGHT WITH PT, SIDE RAILS UP X2, BED ALARM ON, PERSONAL ITEMS WITHIN REACH.
[2018-09-18] MEDS ORDERED: VALSARTAN 160 MG TABLET (DIOVAN) PO SCH (23:45)
[2018-09-18] MEDS ORDERED: TAMSULOSIN HCL 0.4 MG CAP PO SCH (23:45)
--- NOTE | 2018-09-19 01:05 | NUR ---
LOTION/SKIN CARE PT GIVEN LOTION PER REQUEST. PT REPORTED THAT HIS SKIN FELT BETTER AFTER BEING MOISTURIZED. SAFETY PRECAUTIONS IN PLACE. WILL MONITOR.
[2018-09-19 01:40] VITALS: BP_SYST 139
--- NOTE | 2018-09-19 03:09 | NUR ---
RN ROUNDS PT AAOX4, STATES THAT HE IS UNABLE TO SLEEP BECAUSE HE "HAS A LOT ON [HIS] MIND". ENCOURAGED PT TO EXPRESS THOUGHTS. PT DENIES PAIN AT THIS TIME. PT UTILIZED URINAL, 200 CC OF CLEAR YELLOW URINE NOTED. PT REPOSITIONED IN BED FOR COMFORT. BREATHING IS UNLABORED TO ROOM AIR. IVF INFUSING AT ORDERED RATE WITH NO SIGN OF INFILTRATION AT IV SITE. PT ENCOURAGED TO CALL FOR ASSISTANCE. SAFETY PRECAUTIONS OBSERVED. WILL MONITOR.
[2018-09-19] MEDS: LORazepam 2 MG/ML VIAL IVP PRN (04:16)
--- NOTE | 2018-09-19 05:00 | NUR ---
NURSING NOTE PT STATING THAT HE IS STILL UNABLE TO SLEEP. PT REPOSITIONED IN BED FOR COMFORT. PT REQUESTING COFFEE, DECAF COFFEE PROVIDED. IVF INFUSING AT ORDERED RATE. SAFETY PRECAUTIONS OBSERVED. WILL MONITOR.
[2018-09-19] MEDS: LEVOTHYROXINE SODIUM 0.1 MG TABLET PO SCH (06:12)
[2018-09-19] MEDS: GLIMEPIRIDE 2 MG TABLET PO SCH ×2 (06:13→17:34)
[2018-09-19] MEDS: NACL 0.9% 1,000 ML IV SCH ×2 (06:20→17:35)
[2018-09-19] MEDS: INSULIN ASPART 100 UNITS/ML, 10 ML VIAL (NovoLOG) SUBCUT PRN ×4 (06:21→22:14)
--- NOTE | 2018-09-19 06:25 | NUR ---
ACCUCHECK BLOOD SUGAR OF 192. 2 UNITS OF INSULIN ASPART ADMINISTERED PER SLIDING SCALE.
--- NOTE | 2018-09-19 06:30 | NUR ---
CLOSING NOTE PT GIVEN NEW GOWN AND REPOSITIONED IN BED FOR COMFORT. IVF INFUSING AT ORDERED RATE, NO INFILTRATION AT IV SITE. PT DENIES PAIN AT THIS TIME. SAFETY PRECAUTIONS ARE IN PLACE: BED IN LOWEST POSITION, CALL LIGHT WITH PT, SIDE RAILS UP X 2, PERSONAL ITEMS WITHIN REACH, BED ALARM ON. ALL NEEDS MET DURING SHIFT. WILL ENDORSE CARE TO DAY SHIFT RN.
[2018-09-19 06:48] LABS: ANION GAP 6 (5-15); CHLORIDE 103 mmol/L (98-107); CREATININE 1.17 mg/dL (0.55-1.30); GLUCOSE 160 mg/dL (70-99); POTASSIUM 3.7 mmol/L (3.5-5.1); SODIUM SERUM 138 mmol/L (136-145); UREA NITROGEN, BLOOD 20 mg/dL (8-21)
[2018-09-19 07:08] LABS: BASOPHILS % (AUTO) 0.4 % (0.0-2.0); EOSINOPHILS # (AUTO) 0.3 K/uL (0.0-0.4); EOSINOPHILS % (AUTO) 3.8 % (0.0-4.0); HEMATOCRIT 42.3 % (36-54); HEMOGLOBIN 13.8 g/dL (14.0-18.0); LYMPHOCYTES # (AUTO) 3.3 K/uL (1.0-5.5); LYMPHOCYTES % (AUTO) 42.8 % (20.5-51.5); MEAN CORPUSCULAR HEMOGLOBIN 32 pg (27-31); MEAN CORPUSCULAR HGB CONC 33 % (32-36); MEAN CORPUSCULAR VOLUME 97 fL (79.0-98.0); MONOCYTES # (AUTO) 0.7 K/uL (0.0-1.0); MONOCYTES % (AUTO) 9.1 % (1.7-9.3); NEUTROPHILS # (AUTO) 3.4 K/uL (1.8-7.7); NEUTROPHILS % (AUTO) 43.9 % (40.0-70.0); RED BLOOD CELL COUNT(AUTO) 4.35 MIL/uL (4.2-6.2); RED CELL DISTRIBUTION WIDTH 13.1 % (9.0-15.0); WHITE BLOOD COUNT (AUTO) 7.7 K/uL (4.8-10.8)
--- NOTE | 2018-09-19 07:45 | NUR ---
INITIAL NOTE RECEIVED PATIENT FROM TAPPER SUPERVISOR. PATIENT AWAKE IN BED. HARD OF HEARING; HEARING AID AT HOME. ROOM AIR. NO ACUTE DISTRESS. NO SOB. RESPIRATION EVEN AND UNLABORED. SKIN WARM AND DRY TO TOUCH. IV INTACT AND PATENT. HERLINDA IV FLUID ORDERED. ALL NEEDS MET. CALL LIGHT IN REACH. CONT TO MONITOR.
[2018-09-19 08:00] VITALS: BP_SYST 140
--- NOTE | 2018-09-19 08:50 | NUR ---
SEEN AND EXAMINED BY DR. ROGERS AT BEDSIDE. CONT TO MONITOR. CALL LIGHT IN REACH Addendum: 09/19/18 at 1701 by Ammy Maya RN WHILE SPEAKING TO PATIENT; PATIENT TOLD THAT HE DOES NOT HAVE ANY ALLERGIES. PER TO CHANGE ALLERGY STATUS TO "NO KNOWN ALLERGY"
[2018-09-19] MEDS ORDERED: OXYBUTYNIN CHLORIDE 15 MG PO SCH (09:00)
[2018-09-19] MEDS ORDERED: HEPARIN SODIUM,PORCINE 5000 UNITS/ML VIAL SUBCUT SCH (09:00)
[2018-09-19] MEDS ORDERED: IRBESARTAN 150 MG TABLET (AVAPRO) PO SCH (09:00)
[2018-09-19] MEDS: ALLOPURINOL 100 MG TABLET (ZYLOPRIM) PO SCH ×2 (09:09→22:08)
[2018-09-19] MEDS: LISINOPRIL 10 MG TABLET (PRINIVIL) PO SCH (09:10)
[2018-09-19] MEDS: DIVALPROEX SODIUM 500 MG TAB.SR.24H (DEPAKOTE ER) PO SCH ×2 (09:10→22:08)
[2018-09-19] MEDS: TAMSULOSIN HCL 0.4 MG CAP PO SCH ×2 (09:12→22:08)
[2018-09-19] MEDS: amLODIPine BESYLATE 10 MG TABLET PO SCH (09:13)
[2018-09-19] MEDS: SERTRALINE HCL 50 MG TABLET PO SCH (09:13)
[2018-09-19] MEDS: ASPIRIN 81 MG TAB.CHEW PO SCH (09:13)
[2018-09-19] MEDS: FLUTICASONE PROPIONATE 50 mCg/SPRAY 16 GM NS SCH ×2 (09:14→22:09)
[2018-09-19 09:17] LABS: PLATELET COUNT (AUTO) 85 K/uL (130-430)
--- NOTE | 2018-09-19 09:24 | NUR ---
CONSULTATION PAGED/CALLED Reason for Consultation: [] ELEVATED TROP Person Who was Notified: [] DR SOOD Consulting Physician: [] DR SOOD Sales Enablement Specialist Specialty: [] CARDIOLOGY Ordering Physician: [] DR Jose Luis GARCIA Addendum: 09/19/18 at 0964 by Romelia Arrington ME/ ERROR----ORDERING PHYSICIAN - IS DR Dakota ROGERS NOT DR GARCIA
--- NOTE | 2018-09-19 09:30 | NUR ---
MEDS ALL DUE MEDS ADMINISTERED, HERLINDA WELL. ALL NEEDS MET. CONT TO MONITOR. CALL LIGHT IN REACH. CONT TO MONITOR
--- NOTE | 2018-09-19 10:22 | NUR ---
Nutrition Update En Scale 17 noted. Pt admitted for Uncontrolled DM. Diet: [facility] BMI: 39 RD to follow up per nutrition care standards.
--- NOTE | 2018-09-19 11:45 | NUR ---
AMBULATED WITH PHYSICAL THERAPIST IN HALLWAYS USING FRONT WHEEL WALKER; AMBULATED WITH SLOW STEADY GAIT. THERAPIST RECOMMENDS TO USE FWW AND NOT PATIENT'S CANE
[2018-09-19] MEDS ORDERED: MAG-AL HYDROX/SIMETH 30 ML UDC PO PRN (12:30)
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
[2018-09-19 12:53] VITALS: BP_SYST 150
[2018-09-19] MEDS ORDERED: OXYBUTYNIN CHLORIDE 5 MG TABLET PO ONE (13:00)
--- NOTE | 2018-09-19 13:02 | NUR ---
BLOOD GLUCOSE IS 220 mg/dL WITH INSULIN ADMINISTERED ORDERED, HERLINDA WELL. PATIENT EATING LUNCH. DIABETIC TEACHING DONE. BROTHER AND AT BEDSIDE. ALL NEEDS MET. CONT TO MONITOR
--- NOTE | 2018-09-19 16:00 | NUR ---
NOTE PATIENT IN BED AWAKE READING NEWSPAPER. DENIES PAIN. ALL NEEDS MET. CONT TO MONITOR. CALL LIGHT IN REACH
[2018-09-19 16:52] VITALS: BP_SYST 140
--- NOTE | 2018-09-19 18:00 | NUR ---
BLOOD GLUCOSE IS 306 mg/dL WITH INSULIN COVERAGE ORDERED, HERLINDA WELL. DIABETIC TEACHING DONE AGAIN. ALL NEEDS MET. CALL LIGHT IN REACH. PATIENT CONT TO EAT DINNER. CONT TO MONITOR
--- NOTE | 2018-09-19 18:40 | NUR ---
CLOSING NOTE PATIENT RESTING IN BED AWAKE. DENIES PAIN. NO ACUTE DISTRESS. NO SOB. RESP EVEN AND UNLABORED. SKIN WARM AND DRY TO TOUCH. IV INTACT AND PATENT. HERLINDA IV FLUID. NO S/SX HYPO/HYPERGLYCEMIA NOTED. BED IN LOW AND LOCKED POSITION. SIDERAIL UPX3. BED ALARM ON. ALL NEEDS MET. CALL LIGHT IN REACH. CONT TO MONITOR. WILL ENDORSE TO ONCOMING SHIFT.
--- NOTE | 2018-09-19 19:10 | NUR ---
OPENING NOTE Late entry due to patient care. Bedside report received from dayshift nurse. Patient received lying in bed, eyes closed, appears to be asleep. No s/s of acute distress noted. Breathing even and unlabored. No IV site at this time, previous IV site pulled out accidentally, catheter fully intact, no active bleeding noted. Call light with patient. Will continue to monitor.
[2018-09-19 20:00] VITALS: BP_SYST 146
--- NOTE | 2018-09-19 21:00 | NUR ---
NEW IV SITE New IV site initiated by charge nurse, TANESHA Coleman, at right hand 22 gauge, IVF infusing well, IV site patent, no signs of infiltration noted. Patient tolerated procedure well. Will continue to monitor.
[2018-09-19] MEDS: ATORVASTATIN 20 MG TABLET PO SCH (22:07)
[2018-09-19] MEDS: VALSARTAN 160 MG TABLET (DIOVAN) PO SCH (22:07)
[2018-09-19] MEDS: MYRBETRIQ 50 MG PO SCH ×2 (22:09→22:15)
[2018-09-19] MEDS: ZOLPIDEM TARTRATE 5 MG TABLET PO PRN (22:58)
--- NOTE | 2018-09-19 23:00 | NUR ---
WILFREDO Patient requested for Wilfredo at this time. All needs met. Call light with patient. Will continue to monitor.
--- NOTE | 2018-09-20 01:00 | NUR ---
ROUNDS Patient in bed sleeping comfortably. No signs of discomfort noted. Chest rise and fall even bilaterally. IVF infusing well. Call light with patient. Bed alarm on. Will continue to monitor.
[2018-09-20 01:31] VITALS: BP_SYST 144
--- NOTE | 2018-09-20 03:00 | NUR ---
ROUNDS Patient sleeping at this time. No s/s of acute distress noted. Breathing even and unlabored. Call light with patient. IVF infusing well. Bed alarm on. Will continue to monitor.
--- NOTE | 2018-09-20 05:00 | NUR ---
ROUNDS Patient in bed sleeping at this time. No signs of discomfort noted. Chest rise and fall even bilaterally. IVF infusing well. Call light with patient. Bed alarm on. Will continue to monitor.
[2018-09-20] MEDS: NACL 0.9% 1,000 ML IV SCH ×2 (05:45→15:58)
[2018-09-20] MEDS: GLIMEPIRIDE 2 MG TABLET PO SCH ×2 (05:59→17:48)
[2018-09-20] MEDS: LEVOTHYROXINE SODIUM 0.1 MG TABLET PO SCH (05:59)
[2018-09-20] MEDS: INSULIN ASPART 100 UNITS/ML, 10 ML VIAL (NovoLOG) SUBCUT PRN ×4 (06:01→20:46)
--- NOTE | 2018-09-20 06:36 | NUR ---
CLOSING NOTE Patient in bed sleeping at this time. No s/s of acute distress noted. Breathing even and unlabored. IVF infusing well, IV site patent, no signs of infiltration or infection. Skin warm and dry to touch, no signs of hypoglycemia noted. Accucheck: BS at 175, 2 units of Novolog administered per sliding scale. All needs met throughout shift. Fall and safety precautions maintained throughout shift. Will continue to monitor until patient care is endorsed to oncoming dayshift nurse.
[2018-09-20 06:37] LABS: BASOPHILS % (AUTO) 0.3 % (0.0-2.0); EOSINOPHILS # (AUTO) 0.3 K/uL (0.0-0.4); EOSINOPHILS % (AUTO) 2.9 % (0.0-4.0); HEMATOCRIT 40.1 % (36-54); HEMOGLOBIN 13.6 g/dL (14.0-18.0); LYMPHOCYTES # (AUTO) 2.9 K/uL (1.0-5.5); LYMPHOCYTES % (AUTO) 30.9 % (20.5-51.5); MEAN CORPUSCULAR HEMOGLOBIN 33 pg (27-31); MEAN CORPUSCULAR HGB CONC 34 % (32-36); MEAN CORPUSCULAR VOLUME 96 fL (79.0-98.0); MONOCYTES # (AUTO) 0.7 K/uL (0.0-1.0); MONOCYTES % (AUTO) 7.8 % (1.7-9.3); NEUTROPHILS # (AUTO) 5.3 K/uL (1.8-7.7); NEUTROPHILS % (AUTO) 58.1 % (40.0-70.0); PLATELET COUNT (AUTO) 94 K/uL (130-430); RED BLOOD CELL COUNT(AUTO) 4.17 MIL/uL (4.2-6.2); RED CELL DISTRIBUTION WIDTH 13.4 % (9.0-15.0); WHITE BLOOD COUNT (AUTO) 9.2 K/uL (4.8-10.8)
[2018-09-20 06:44] LABS: ANION GAP 8 (5-15); CALCIUM 8.6 mg/dL (8.4-11.0); CHLORIDE 103 mmol/L (98-107); CREATININE 1.16 mg/dL (0.55-1.30); GLUCOSE 173 mg/dL (70-99); POTASSIUM 3.9 mmol/L (3.5-5.1); SODIUM SERUM 139 mmol/L (136-145); UREA NITROGEN, BLOOD 21 mg/dL (8-21)
--- NOTE | 2018-09-20 07:30 | NUR ---
IV RE-INSERTION: Patient pulled out IV. Restarted on right forearm. Successful after 1 attempt. Resumed current IVF of NS and regulated @ 90 per hour. Will observe for any signs of infiltration.
--- NOTE | 2018-09-20 07:45 | NUR ---
OPENING NOTE patient is resting in bed, patient denies any pain at this time, A&Ox4, assessment completed, educated station cleaning porter light systems and plan of care, patient verbalized understanding, no other needs at this time, bed in the lowest position, three side rails up, bed alarm on, call light within reach, fall precautions in place, IV line clean and intact.
[2018-09-20 08:00] VITALS: BP_SYST 148
[2018-09-20] MEDS: FLUTICASONE PROPIONATE 50 mCg/SPRAY 16 GM NS SCH ×2 (09:00→20:43)
[2018-09-20] MEDS: OXYBUTYNIN CHLORIDE 5 MG TABLET PO SCH (09:07)
[2018-09-20] MEDS: SERTRALINE HCL 50 MG TABLET PO SCH (09:07)
[2018-09-20] MEDS: DIVALPROEX SODIUM 500 MG TAB.SR.24H (DEPAKOTE ER) PO SCH ×2 (09:07→20:44)
[2018-09-20] MEDS: ALLOPURINOL 100 MG TABLET (ZYLOPRIM) PO SCH ×2 (09:07→20:44)
[2018-09-20] MEDS: TAMSULOSIN HCL 0.4 MG CAP PO SCH ×2 (09:07→20:44)
[2018-09-20] MEDS: ASPIRIN 81 MG TAB.CHEW PO SCH (09:07)
--- NOTE | 2018-09-20 09:07 | NUR ---
scheduled medications patient is resting in bed, educated on medication uses and side effects, patient verbalized understanding and tolerated well, no other needs at this time, bed in the lowest position, three side rails up, bed alarm screwhead stoner and polisher light within reach, fall precautions in place, IV line clean and intact.
[2018-09-20] MEDS: amLODIPine BESYLATE 10 MG TABLET PO SCH (09:08)
[2018-09-20] MEDS: LISINOPRIL 10 MG TABLET (PRINIVIL) PO SCH (09:08)
--- NOTE | 2018-09-20 10:10 | NUR ---
Dr Campos covering for Dr Sales, new orders put in for eval.
--- NOTE | 2018-09-20 11:44 | NUR ---
accuchek patient is resting in bed, visitors present,accuchek done and sliding scale needed per MD order, educated medication use and side effects, patient verbalized understanding and tolerated well, no other needs at this time, bed in the lowest position, three side rails up, bed alarm material controller light within reach, fall precautions in place, IV line clean and intact.
[2018-09-20 12:02] VITALS: BP_SYST 137
--- NOTE | 2018-09-20 13:30 | NUR ---
rounds patient is resting in bed,patient asked for a new gown but does not want to have it on because he feels warm, patient was tossing and turning and asked to be disconnected from the IV line where he is getting fluids, educated on the needs for fluids but patient states he does not want to be connected to it right now because he is "afraid it will pull out again from how much he tosses and turns", bed in the lowest position, three side rails up, bed alarm on, call light within reach, fall precautions in place, IV clean and intact.
--- NOTE | 2018-09-20 15:00 | NUR ---
rounds patient is resting in bed, eyes closed, breathing easy and nonlabored, no other needs at this time, bed in the lowest position, three side rails up, bed alarm on, call light within reach, fall precautions in place, IV line clean and intact.
[2018-09-20 16:02] VITALS: BP_SYST 149
--- NOTE | 2018-09-20 17:55 | NUR ---
accuchek and medication patient is resting in bed, visitors present,accuchek done and sliding scale needed per MD order, educated medication use and side effects, patient verbalized understanding and tolerated well, no other needs at this time, bed in the lowest position, three side rails up, bed alarm suggestion clerk light within reach, fall precautions in place, asked patient if I can connect his IV line to the fluids and the patient refused at this time.
--- NOTE | 2018-09-20 18:45 | NUR ---
closing note patient is resting in bed, eyes closed, breathing easy and nonlabored, no other needs at this time, will endorse to noc shift nurse about patient's refusal to be connect to the IV fluids, bed in the lowest position, three side rails up, bed alarm on, call light within reach, fall precautions in place, IV line clean and intact.
--- NOTE | 2018-09-20 19:05 | NUR ---
OPENING NOTE Bedside report received from dayshift nurse. Patient received lying in bed, asleep, no s/s of acute distress noted. Breathing is even and unlabored. IVF not infusing due to patient's refusal according to dayshift nurse, will continue to encourage throughout shift. Call light with patient. Bed is locked and at lowest position. Will continue to monitor.
[2018-09-20 20:00] VITALS: BP_SYST 137
[2018-09-20] MEDS: ATORVASTATIN 20 MG TABLET PO SCH (20:44)
[2018-09-20] MEDS: MYRBETRIQ 50 MG PO SCH (20:44)
[2018-09-20] MEDS: VALSARTAN 160 MG TABLET (DIOVAN) PO SCH (20:44)
--- NOTE | 2018-09-20 20:45 | NUR ---
MEDPASS/REFUSE IV Medpass conducted at this time. Skin warm and dry to touch, no signs of hypoglycemia noted. Patient had no difficulty swallowing medications. Patient refused to have IVF at this time despite being educated on its purpose and benefits, patient stated,"I roll around when I'm asleep, it keeps coming off". Will continue to encourage throughout the shift. Call light with patient. Bed alarm on. Will continue to monitor.
--- NOTE | 2018-09-20 23:00 | NUR ---
ROUNDS Patient asleep at this time. No signs of discomfort noted. Chest rise and fall even bilaterally. Call light with patient. Bed alarm on. Will continue to monitor.
[2018-09-21 00:29] VITALS: BP_SYST 131
--- NOTE | 2018-09-21 01:00 | NUR ---
VOID URINAL Patient at bedside using urinal at this time. No signs of discomfort noted. Patient denies any pain. Patient assisted back to bed. Breathing even and unlabored. Call light with patient. Bed alarm on. Will continue to monitor.
--- NOTE | 2018-09-21 03:00 | NUR ---
ROUNDS Patient asleep at this time. No s/s of acute distress noted. Breathing even and unlabored. Call light with patient. Bed alarm on. Will continue to monitor.
[2018-09-21] MEDS: NACL 0.9% 1,000 ML IV SCH ×3 (03:05→16:42)
--- NOTE | 2018-09-21 05:00 | NUR ---
ROUNDS Patient in bed sleeping at this time. No signs of discomfort noted. Chest rise and fall even bilaterally. Call light with patient. Bed alarm on. Will continue to monitor.
[2018-09-21] MEDS: LEVOTHYROXINE SODIUM 0.1 MG TABLET PO SCH (06:14)
[2018-09-21] MEDS: GLIMEPIRIDE 2 MG TABLET PO SCH ×2 (06:15→17:23)
[2018-09-21] MEDS: INSULIN ASPART 100 UNITS/ML, 10 ML VIAL (NovoLOG) SUBCUT PRN ×4 (06:17→20:26)
--- NOTE | 2018-09-21 06:43 | NUR ---
CLOSING NOTES Patient in bed, eyes closed, appears to be asleep at this time. No s/s of acute distress. Breathing even and unlabored. Skin warm and dry to touch. No signs of hypoglycemia. All needs met throughout shift. Fall and safety precautions maintained throughout shift. Will continue to monitor until patient care is endorsed to oncoming dayshift nurse.
[2018-09-21 06:52] LABS: BASOPHILS % (AUTO) 0.5 % (0.0-2.0); EOSINOPHILS # (AUTO) 0.3 K/uL (0.0-0.4); HEMATOCRIT 40.1 % (36-54); HEMOGLOBIN 13.5 g/dL (14.0-18.0); LYMPHOCYTES # (AUTO) 3.1 K/uL (1.0-5.5); LYMPHOCYTES % (AUTO) 40.4 % (20.5-51.5); MEAN CORPUSCULAR HEMOGLOBIN 33 pg (27-31); MEAN CORPUSCULAR HGB CONC 34 % (32-36); MEAN CORPUSCULAR VOLUME 98 fL (79.0-98.0); MONOCYTES # (AUTO) 0.7 K/uL (0.0-1.0); MONOCYTES % (AUTO) 8.8 % (1.7-9.3); NEUTROPHILS # (AUTO) 3.6 K/uL (1.8-7.7); NEUTROPHILS % (AUTO) 46.3 % (40.0-70.0); PLATELET COUNT (AUTO) 85 K/uL (130-430); RED BLOOD CELL COUNT(AUTO) 4.08 MIL/uL (4.2-6.2); WHITE BLOOD COUNT (AUTO) 7.7 K/uL (4.8-10.8)
[2018-09-21 07:24] LABS: ANION GAP 7 (5-15); CHLORIDE 103 mmol/L (98-107); CREATININE 1.17 mg/dL (0.55-1.30); GLUCOSE 181 mg/dL (70-99); POTASSIUM 3.9 mmol/L (3.5-5.1); SODIUM SERUM 138 mmol/L (136-145); UREA NITROGEN, BLOOD 24 mg/dL (8-21); VALPROIC ACID 38 ug/mL (50-100)
--- NOTE | 2018-09-21 07:40 | NUR ---
OPENING NOTE patient is resting in bed, patient denies any pain at this time, A&Ox4, assessment completed, educated electronic prepress system operator light systems and plan of care, patient verbalized understanding, no other needs at this time, bed in the lowest position, three side rails up, educated on benefits of having bed alarm on and patient still refused it, educated on the importance of using call light if he needs to get up, patient verbalized understanding, call light within reach, fall precautions in place, patient asked if he is okay with restarting his IV fluids but patient refused to be connected to IV fluids.
[2018-09-21] MEDS: TAMSULOSIN HCL 0.4 MG CAP PO SCH ×2 (09:02→20:11)
[2018-09-21] MEDS: SERTRALINE HCL 50 MG TABLET PO SCH (09:02)
[2018-09-21] MEDS: LISINOPRIL 10 MG TABLET (PRINIVIL) PO SCH (09:02)
[2018-09-21] MEDS: ALLOPURINOL 100 MG TABLET (ZYLOPRIM) PO SCH ×2 (09:03→20:11)
[2018-09-21] MEDS: ASPIRIN 81 MG TAB.CHEW PO SCH (09:03)
[2018-09-21] MEDS: DIVALPROEX SODIUM 500 MG TAB.SR.24H (DEPAKOTE ER) PO SCH ×2 (09:03→20:12)
[2018-09-21] MEDS: OXYBUTYNIN CHLORIDE 5 MG TABLET PO SCH (09:03)
[2018-09-21] MEDS: amLODIPine BESYLATE 10 MG TABLET PO SCH (09:03)
[2018-09-21] MEDS: FLUTICASONE PROPIONATE 50 mCg/SPRAY 16 GM NS SCH ×2 (09:04→20:15)
--- NOTE | 2018-09-21 09:04 | NUR ---
OPENING NOTE patient is resting in bed, educated on medication uses and side effects, patient verbalized understanding and tolerated well, no other needs at this time, bed in the lowest position, three side rails up, educated on benefits of having bed alarm on and patient still refused it, educated on the importance of using call light if he needs to get up, patient verbalized understanding, call light within reach, fall precautions in place, patient asked if he is okay with restarting his IV fluids but patient refused to be connected to IV fluids. Addendum: 09/21/18 at 1350 by Krystal Cisneros RN SCHEDULED MEDICATIONS
[2018-09-21 09:28] VITALS: BP_SYST 132
--- NOTE | 2018-09-21 11:20 | NUR ---
ACCUCHEK patient is resting in bed, accuchek done and sliding scale needed per MD order, patient verbalized understanding and tolerated well, no other needs at this time, bed in the lowest position, three side rails up, educated on benefits of having bed alarm on and patient still refused it, educated on the importance of using call light if he needs to get up, patient verbalized understanding, call light within reach, fall precautions in place, patient asked if he is okay with restarting his IV fluids but patient refused to be connected to IV fluids.
[2018-09-21 11:36] VITALS: BP_SYST 143
--- NOTE | 2018-09-21 13:51 | NUR ---
rounds patient is resting in bed, eyes closed and breathing easy and nonlabored, no other needs at this time, bed in the lowest position, three side rails up, call light within reach, fall precautions in place.
--- NOTE | 2018-09-21 14:43 | NUR ---
OVERLAY PLASTICIAN walked patient around unit with the assist of a walker, breathing easy and nonlabored, assisted patient back into room, stated he wanted to sit in his chair, no other needs at this time, call light within reach, fall precautions in place, asked patient if he would like to be reconnected to his fluids, patient refused at this time.
[2018-09-21] MEDS: LORazepam 2 MG/ML VIAL IVP PRN (15:57)
[2018-09-21 16:04] VITALS: BP_SYST 138
--- NOTE | 2018-09-21 16:20 | NUR ---
IV RE-INSERTION: Complaining of pain to IV site. Restarted on left forearm. Successful after 1 attempt. Resumed current IVF of normal saline and regulated @ 90 per hour. Will observe for any signs of infiltration.
--- NOTE | 2018-09-21 16:25 | NUR ---
ativan and mylanta patient is resting in bed, patient complaining of anxiety and heartburn, PRN medications given, educated on medication uses and side effects, patient verbalized understanding and tolerated well, no other needs at this time, bed in the lowest position, three side rails up, call light within reach, fall precautions in place, IV line clean and intact, patient stated that he would like to be restarted on his IV fluids, continued with normal saline at 90ml/hr.
--- NOTE | 2018-09-21 17:13 | NUR ---
accuchek and medication patient is resting in bed, accuchek done and sliding scale needed per MD order, educated medication use and side effects, patient verbalized understanding and tolerated well, no other needs at this time, bed in the lowest position, three side rails up, bed alarm auto suspension and steering mechanic light within reach, fall precautions in place, IV line clean and intact.
--- NOTE | 2018-09-21 18:54 | NUR ---
closing note patient is in bed eating, visitor at the beside, patient asked for assistance to the bathroom, assisted patient back to bed, no other needs at this time, will endorse to noc shift nurse, bed in the lowest position, three side rails up, bed alarm on, call light within reach, fall precautions in place, IV line clean and intact.
--- NOTE | 2018-09-21 19:05 | NUR ---
OPENING NOTE: Recieved patient in bed with family member at bedside AAOX2. Pt reoriented to time ,place and purpose. Pt repositioned for comfort, Gown changed. Plan of care discusssed with the pt and family member, verbalized understanding. Pt denies any pain, sob. Not in apprent distress. siderails up x2. Encouraged to call nurse and use call light if assistance is needed. Call light in reach.
[2018-09-21 20:00] VITALS: BP_SYST 154
[2018-09-21] MEDS: VALSARTAN 160 MG TABLET (DIOVAN) PO SCH (20:13)
[2018-09-21] MEDS: ATORVASTATIN 20 MG TABLET PO SCH (20:13)
[2018-09-21] MEDS: MYRBETRIQ 50 MG PO SCH (20:14)
--- NOTE | 2018-09-21 21:00 | NUR ---
ROUNDS/BM Patient assisted to the bathroom and back to bed. Patient had a bowel movement at this time. No signs of discomfort. Chest rise and fall even bilaterally. No SOB. Patient tolerated activity well. Call light with patient. Bed alarm on. IVF infusing well. Will continue to monitor.
--- NOTE | 2018-09-21 23:00 | NUR ---
Pt awake, alert and oriented x3. repositioned for comfort. Siderails up x2. call light within reach.
[2018-09-22] VITALS: BP_SYST 142
--- NOTE | 2018-09-22 02:05 | NUR ---
ROUNDS: Pt asleep with Hob elevated. No discomfort and SOB noted. Not in acute distress. Bed alarm on. side rails up x2. Call light within reach.
--- NOTE | 2018-09-22 04:00 | NUR ---
ROUNDS/SNACK Patient awake at this time, urinating in urinal. No signs of discomfort noted. Chest rise and fall even bilaterally. IVF infusing well. Patient requested for snacks, snacks provided by RN. Call light with patient. Bed alarm on. Will continue to monitor.
[2018-09-22] MEDS: NACL 0.9% 1,000 ML IV SCH (04:28)
[2018-09-22] MEDS: LEVOTHYROXINE SODIUM 0.1 MG TABLET PO SCH (06:14)
[2018-09-22] MEDS: GLIMEPIRIDE 2 MG TABLET PO SCH (06:21)
[2018-09-22] MEDS: INSULIN ASPART 100 UNITS/ML, 10 ML VIAL (NovoLOG) SUBCUT PRN ×2 (06:25→11:26)
--- NOTE | 2018-09-22 06:30 | NUR ---
CLOSING NOTE Patient in bed at this time, sleeping. No s/s of acute distress noted. Breathing even and unlabored. IVF infusing well, IV site patent, no signs of infiltration or infection noted. Skin warm and dry to touch, no signs of hypoglycemia noted. Last accucheck BS at 155, covered with 4 units of NOVOLOG per sliding scale. All needs met throughout shift. Fall and safety precautions maintained throughout shift. Will continue to monitor until patient care is endorsed to oncoming dayshift nurse.
[2018-09-22 06:59] LABS: BASOPHILS % (AUTO) 0.3 % (0.0-2.0); EOSINOPHILS # (AUTO) 0.3 K/uL (0.0-0.4); EOSINOPHILS % (AUTO) 4.1 % (0.0-4.0); HEMATOCRIT 39.7 % (36-54); HEMOGLOBIN 13.5 g/dL (14.0-18.0); LYMPHOCYTES # (AUTO) 2.7 K/uL (1.0-5.5); LYMPHOCYTES % (AUTO) 35.4 % (20.5-51.5); MEAN CORPUSCULAR HEMOGLOBIN 33 pg (27-31); MEAN CORPUSCULAR HGB CONC 34 % (32-36); MEAN CORPUSCULAR VOLUME 97 fL (79.0-98.0); MONOCYTES # (AUTO) 0.7 K/uL (0.0-1.0); MONOCYTES % (AUTO) 9.3 % (1.7-9.3); NEUTROPHILS # (AUTO) 4.1 K/uL (1.8-7.7); NEUTROPHILS % (AUTO) 50.9 % (40.0-70.0); PLATELET COUNT (AUTO) 77 K/uL (130-430); RED CELL DISTRIBUTION WIDTH 13.1 % (9.0-15.0); WHITE BLOOD COUNT (AUTO) 7.8 K/uL (4.8-10.8)
--- NOTE | 2018-09-22 07:25 | NUR ---
AM ROUNDS: PATIENT SLEEPING DURING ROUNDS. IVF ON GOING AT LEFT ARM INTACT. NO DISTRESS. CALL LIGHT WITH IN REACH. BED LOCKED AT LOWEST POSITION. BED ALARM ON. REPORT GIVEN BY NIGHT NURSE INOCENTE AT THE BEDSIDE.
[2018-09-22 07:30] LABS: ANION GAP 8 (5-15); CALCIUM 9.2 mg/dL (8.4-11.0); CHLORIDE 103 mmol/L (98-107); CREATININE 1.24 mg/dL (0.55-1.30); GLUCOSE 166 mg/dL (70-99); POTASSIUM 3.8 mmol/L (3.5-5.1); SODIUM SERUM 141 mmol/L (136-145); UREA NITROGEN, BLOOD 27 mg/dL (8-21)
[2018-09-22 08:10] VITALS: BP_SYST 149
[2018-09-22] MEDS: TAMSULOSIN HCL 0.4 MG CAP PO SCH (09:12)
[2018-09-22] MEDS: SERTRALINE HCL 50 MG TABLET PO SCH (09:12)
[2018-09-22] MEDS: FLUTICASONE PROPIONATE 50 mCg/SPRAY 16 GM NS SCH (09:12)
[2018-09-22] MEDS: DIVALPROEX SODIUM 500 MG TAB.SR.24H (DEPAKOTE ER) PO SCH (09:12)
[2018-09-22] MEDS: amLODIPine BESYLATE 10 MG TABLET PO SCH (09:13)
[2018-09-22] MEDS: ASPIRIN 81 MG TAB.CHEW PO SCH (09:13)
[2018-09-22] MEDS: OXYBUTYNIN CHLORIDE 5 MG TABLET PO SCH (09:13)
[2018-09-22] MEDS: ALLOPURINOL 100 MG TABLET (ZYLOPRIM) PO SCH (09:14)
[2018-09-22] MEDS: LISINOPRIL 10 MG TABLET (PRINIVIL) PO SCH (09:14)
[2018-09-22] MEDS ORDERED: METOPROLOL TARTRATE 25 MG TABLET PO ONE (09:45)
--- NOTE | 2018-09-22 10:15 | NUR ---
DC Planning: Received DCP order to dc pt to snf. CM s/w the pt about the snf of choice including [facility] [facility] , recommended by dr Sales. The pt agreed transferring to [place] as per dr. Sales's.--- SALINA Penn made aware.
[2018-09-22 10:41] VITALS: BP_SYST 128
--- NOTE | 2018-09-22 12:01 | NUR ---
Discharge Planning: DCP faxed pt referral to [facility] (f [phone] p [phone]) Art came to visit patient and accepted, will call back with room number.
--- NOTE | 2018-09-22 13:13 | NUR ---
Dietitian Recommendations *Recommend CCHO 2gm Na diet. Please see Nutritional Assessment for details. NOELLE, SABIHA
--- NOTE | 2018-09-22 13:49 | NUR ---
[facility] (f [phone] p [phone]) accept pt to [facility] nurse to nurse [phone] , transportation with [facility] ([phone]) 6:00pm P/U. Patient nurse made aware, packet taken to nurse station.
[2018-09-22 14:14] VITALS: BP_SYST 128
--- NOTE | 2018-09-22 16:25 | NUR ---
REPORT NOTES: REPORT GIVEN TO DINA ALMENDAREZ FROM [facility].
[2018-09-22 16:38] VITALS: BP_SYST 142
--- NOTE | 2018-09-22 16:45 | NUR ---
TRANSFER NOTES: TRANSFER PACKETS AND SOME BELONGINGS CANE ,EYE GLASSES AND PAIR OF SHOES WITH THE PATIENT DURING TRANSFER.IV REMOVED,DRY GAUZE APPLIED,NO BLEEDING NOTED. LETY SIGNIFICANT OTHER GIVEN THE BOTTLE OF MIRBETRIQ-PT'S OWN HOME MEDS.[facility] TRANSPORTED PATIENT TO [facility] IN STABLE CONDITION.
[2018-09-22] MEDS ORDERED: METOPROLOL TARTRATE 25 MG TABLET PO SCH (21:00)
== END 2018-09-22 16:45 | DRG 280 ==
LOC: SED 16:55 → STU 18:43
PROVIDERS: ADMIT General Practice; ATTEND General Practice
DX: I21.A1 Myocardial infarction type 2 (principal); N17.0 Acute kidney failure with tubular necrosis; G90.9 Disorder of the autonomic nervous system, unspecified; E11.43 Type 2 diabetes mellitus with diabetic autonomic (poly)neuropathy; N32.81 Overactive bladder; I10 Essential (primary) hypertension; E11.65 Type 2 diabetes mellitus with hyperglycemia; D69.6 Thrombocytopenia, unspecified; E78.5 Hyperlipidemia, unspecified; F31.9 Bipolar disorder, unspecified; M10.9 Gout, unspecified; W18.39XA Other fall on same level, initial encounter; F03.90 Unspecified dementia, unspecified severity, without behavioral disturbance, psychotic disturbance, mood disturbance, and anxiety; Z86.73 Personal history of transient ischemic attack (TIA), and cerebral infarction without residual deficits; E66.01 Morbid (severe) obesity due to excess calories; Z90.49 Acquired absence of other specified parts of digestive tract; Z91.14 Patient's other noncompliance with medication regimen; Z91.19 Patient's noncompliance with other medical treatment and regimen; Z91.81 History of falling; Z88.5 Allergy status to narcotic agent; Z88.8 Allergy status to other drugs, medicaments and biological substances; Z79.899 Other long term (current) drug therapy; Z79.82 Long term (current) use of aspirin; Z68.39 Body mass index [BMI] 39.0-39.9, adult; Y93.89 Activity, other specified; Y92.89 Other specified places as the place of occurrence of the external cause; Y99.8 Other external cause status
CPT/HCPCS: 36415; 70450-TC; 71045; 80048; 80053; 80164-TC; 81000-TC; 82962; 83036; 83735-TC; 84484; 85025; 90656; 93005; 93880; 96360; 96372; 97110-GP; 97116-GP; 97530-GP; 99285; G0378; J1644; J1815; J2060; J7030

== ENCOUNTER 2019-02-19 16:07 | Inpatient (IN) | payer OTHER, MEDICAID ==
[~2019-02-19] VITALS: Ht 182.9 cm; Wt 117.9 kg
[2019-02-19 16:07] VITALS: BP_SYST 136
[~2019-02-19 16:07] MED LIST changes: +BENZ-16 PO; -DIVA-50 PO; +DIVA500T4 PO; +IRBE150T48 PO; +LOM2.5 PO; +OMEG10006 PO; +OXYB5TAB11 PO; +QUEtiapine FUMARATE 25 MG TABLET PO SCH; +TURM538C PO; -VALS160T2 PO; +VIT1TABL83 PO
[2019-02-19] MEDS ORDERED: ALBUTEROL SULFATE 0.083% 2.5 MG/3 ML VIAL.NEB IH ONE (16:45)
[2019-02-19] MEDS ORDERED: IPRATROPIUM BROM 0.5 MG/2.5 ML VIAL.NEB (ATROVENT) IH ONE (16:45)
[2019-02-19 16:52] LABS: BASOPHILS % (AUTO) 0.7 % (0.0-2.0); EOSINOPHILS # (AUTO) 0.2 K/uL (0.0-0.4); EOSINOPHILS % (AUTO) 3.4 % (0.0-4.0); HEMOGLOBIN 12.6 g/dL (14.0-18.0); LYMPHOCYTES # (AUTO) 2.1 K/uL (1.0-5.5); LYMPHOCYTES % (AUTO) 32.1 % (20.5-51.5); MEAN CORPUSCULAR HEMOGLOBIN 33 pg (27-31); MEAN CORPUSCULAR HGB CONC 33 % (32-36); MEAN CORPUSCULAR VOLUME 98 fL (79.0-98.0); MONOCYTES # (AUTO) 0.5 K/uL (0.0-1.0); NEUTROPHILS # (AUTO) 3.8 K/uL (1.8-7.7); NEUTROPHILS % (AUTO) 56.8 % (40.0-70.0); RED BLOOD CELL COUNT(AUTO) 3.86 MIL/uL (4.2-6.2); RED CELL DISTRIBUTION WIDTH 14.2 % (9.0-15.0); WHITE BLOOD COUNT (AUTO) 6.6 K/uL (4.8-10.8)
[2019-02-19 17:11] LABS: ANION GAP 8 (5-15); CALCIUM 8.9 mg/dL (8.4-11.0); CHLORIDE 104 mmol/L (98-107); CREATININE 1.48 mg/dL (0.55-1.30); GLUCOSE 264 mg/dL (70-99); SODIUM SERUM 143 mmol/L (136-145); UREA NITROGEN, BLOOD 29 mg/dL (8-21)
[2019-02-19 17:17] LABS: ALANINE AMINOTRANSFERASE 34 U/L (12-78); ALBUMIN 3.6 g/dL (3.4-4.8); ASPARTATE AMINOTRANSFERASE 23 U/L (10-37); TOTAL BILIRUBIN 0.4 mg/dL (0.0-1.0)
[2019-02-19 17:22] LABS: PLATELET COUNT (AUTO) 84 K/uL (130-430)
[2019-02-19] MEDS ORDERED: SITA100T11 PO (17:46)
[2019-02-19] MEDS ORDERED: UMEC62.5 IH (17:46)
[2019-02-19] MEDS ORDERED: ASPIRIN 81 MG TAB.CHEW PO ONE (18:00)
[2019-02-19 18:26] VITALS: BP_SYST 146
[2019-02-19] MEDS ORDERED: methylPREDNISolone SOD SUCC/PF 62.5 MG/ML VIAL IVP ONE (18:30)
[2019-02-19] MEDS ORDERED: IPRATROPIUM/ALBUTEROL SULFATE 3 ML AMPUL.NEB (DUONEB) INH ONE (19:00)
[2019-02-19] MEDS ORDERED: IPRATROPIUM/ALBUTEROL SULFATE 3 ML AMPUL.NEB (DUONEB) INH PRN (19:00)
[2019-02-19 19:30] VITALS: BP_SYST 146
[2019-02-19] MEDS ORDERED: IRBE150T26 PO (21:29)
[2019-02-19] MEDS ORDERED: BENZONATATE 100 MG CAPSULE (TESSALON) PO PRN (21:45)
[2019-02-19] MEDS ORDERED: DIPHENOXYLATE HCL/ATROP SULF 2.5 MG TAB PO PRN (21:45)
[2019-02-19] MEDS ORDERED: OXYBUTYNIN CHLORIDE 5 MG TABLET PO SCH (21:45)
[2019-02-19] MEDS ORDERED: AZITHROMYCIN 250 MG TABLET PO SCH (22:00)
[2019-02-19] MEDS ORDERED: TEMAZEPAM 15 MG CAPSULE PO SCH (22:30)
[2019-02-19] MEDS ORDERED: QUEtiapine FUMARATE 25 MG TABLET PO SCH (23:30)
[2019-02-19] MEDS ORDERED: cefTRIAXone 1 GM IVPB PREMIX 50 ML IV ONE (23:47)
[2019-02-19] MEDS: cloNIDine HCL 0.1 MG TABLET PO PRN (23:51)
[2019-02-19] MEDS: cefTRIAXone 1 GM in D5W 50 ML IV SCH (23:52)
[2019-02-20 00:02] VITALS: BP_SYST 177
[2019-02-20 06:27] LABS: BASOPHILS % (AUTO) 0.2 % (0.0-2.0); EOSINOPHILS % (AUTO) 0.2 % (0.0-4.0); HEMATOCRIT 38.8 % (36-54); HEMOGLOBIN 12.8 g/dL (14.0-18.0); LYMPHOCYTES # (AUTO) 1.5 K/uL (1.0-5.5); LYMPHOCYTES % (AUTO) 23.4 % (20.5-51.5); MEAN CORPUSCULAR HEMOGLOBIN 34 pg (27-31); MEAN CORPUSCULAR HGB CONC 33 % (32-36); MONOCYTES % (AUTO) 0.7 % (1.7-9.3); NEUTROPHILS # (AUTO) 4.9 K/uL (1.8-7.7); NEUTROPHILS % (AUTO) 75.5 % (40.0-70.0); PLATELET COUNT (AUTO) 85 K/uL (130-430); RED BLOOD CELL COUNT(AUTO) 3.77 MIL/uL (4.2-6.2); RED CELL DISTRIBUTION WIDTH 14.6 % (9.0-15.0); WHITE BLOOD COUNT (AUTO) 6.5 K/uL (4.8-10.8)
[2019-02-20] MEDS: LEVOTHYROXINE SODIUM 0.1 MG TABLET PO SCH (06:41)
[2019-02-20] MEDS: GLIMEPIRIDE 2 MG TABLET PO SCH ×2 (06:42→17:17)
[2019-02-20 06:58] LABS: ALANINE AMINOTRANSFERASE 39 U/L (12-78); ALBUMIN 3.6 g/dL (3.4-4.8); ANION GAP 13 (5-15); ASPARTATE AMINOTRANSFERASE 26 U/L (10-37); CHLORIDE 104 mmol/L (98-107); CREATININE 1.53 mg/dL (0.55-1.30); GLUCOSE 293 mg/dL (70-99); POTASSIUM 4.4 mmol/L (3.5-5.1); SODIUM SERUM 140 mmol/L (136-145); THYROID STIMULATING HORMONE 0.41 uIu/mL (0.34-4.82); TOTAL BILIRUBIN 0.5 mg/dL (0.0-1.0); UREA NITROGEN, BLOOD 34 mg/dL (8-21)
[2019-02-20 07:11] LABS: MEAN CORPUSCULAR VOLUME 103 fL (79.0-98.0)
[2019-02-20 08:30] VITALS: BP_SYST 179
[2019-02-20] MEDS: ALLOPURINOL 100 MG TABLET (ZYLOPRIM) PO SCH (08:46)
[2019-02-20] MEDS: TAMSULOSIN HCL 0.4 MG CAP PO SCH ×2 (08:47→20:46)
[2019-02-20] MEDS: SERTRALINE HCL 50 MG TABLET PO SCH (08:47)
[2019-02-20] MEDS: AZITHROMYCIN 250 MG TABLET PO SCH (08:47)
[2019-02-20] MEDS: ASPIRIN 81 MG TAB.CHEW PO SCH (08:47)
[2019-02-20] MEDS: cloNIDine HCL 0.1 MG TABLET PO PRN (08:47)
[2019-02-20] MEDS: DIVALPROEX SODIUM 250 MG TAB.SR.24H (DEPAKOTE ER) PO SCH ×2 (08:50→20:45)
[2019-02-20 11:31] VITALS: BP_SYST 131
[2019-02-20 13:02] LABS: BILIRUBIN,URINE NEGATIVE (NEGATIVE); BLOOD, URINE NEGATIVE (NEGATIVE); CLARITY/URINE CLEAR (CLEAR); COLOR,URINE YELLOW (YELLOW); GLUCOSE,URINE 3+ (NEGATIVE); KETONES,URINE NEGATIVE (NEGATIVE); LEUKOCYTE ESTERASE ,URINE NEGATIVE (NEGATIVE); NITRITE, URINE NEGATIVE (NEGATIVE); PROTEIN URINE NEGATIVE (NEGATIVE); UROBILINOGEN,URINE 0.2 (0.2-1.0)
[2019-02-20 13:07] LABS: BACTERIA,URINE RARE /HPF (None Seen); RBC,URINE 0-3 /HPF (0-3); WBC,URINE 0-3 /HPF (0-3)
[2019-02-20] MEDS: IPRATROPIUM/ALBUTEROL SULFATE 3 ML AMPUL.NEB (DUONEB) INH SCH ×2 (15:20→19:57)
[2019-02-20 15:35] VITALS: BP_SYST 136
[2019-02-20] MEDS: QUEtiapine FUMARATE 25 MG TABLET PO SCH (17:17)
[2019-02-20 20:45] VITALS: BP_SYST 131
[2019-02-20] MEDS: LOSARTAN POTASSIUM 50 MG TABLET (COZAAR) PO SCH (20:45)
[2019-02-20] MEDS: ATORVASTATIN 20 MG TABLET PO SCH (20:46)
[2019-02-20] MEDS ORDERED: IRBESARTAN 150 MG PO SCH (21:00)
[2019-02-20] MEDS ORDERED: TEMAZEPAM 15 MG CAPSULE PO SCH (21:00)
[2019-02-20] MEDS ORDERED: NON-FORMULARY MEDICATION (Mirabegron (Myrbetriq) 50 MG) PO SCH (21:00)
[2019-02-20] MEDS: cefTRIAXone 1 GM in D5W 50 ML IV SCH (23:16)
[2019-02-21] MEDS: ACETAMINOPHEN 325 MG TABLET PO PRN ×2 (00:23→13:10)
[2019-02-21 01:09] VITALS: BP_SYST 160
[2019-02-21] MEDS: GLIMEPIRIDE 2 MG TABLET PO SCH ×2 (06:04→17:27)
[2019-02-21] MEDS: LEVOTHYROXINE SODIUM 0.1 MG TABLET PO SCH (06:04)
[2019-02-21 07:30] LABS: BASOPHILS % (AUTO) 0.3 % (0.0-2.0); EOSINOPHILS # (AUTO) 0.1 K/uL (0.0-0.4); EOSINOPHILS % (AUTO) 1.1 % (0.0-4.0); HEMATOCRIT 35.1 % (36-54); HEMOGLOBIN 11.6 g/dL (14.0-18.0); LYMPHOCYTES # (AUTO) 3.5 K/uL (1.0-5.5); MEAN CORPUSCULAR HEMOGLOBIN 33 pg (27-31); MEAN CORPUSCULAR HGB CONC 33 % (32-36); MEAN CORPUSCULAR VOLUME 99 fL (79.0-98.0); MONOCYTES # (AUTO) 0.9 K/uL (0.0-1.0); MONOCYTES % (AUTO) 8.9 % (1.7-9.3); NEUTROPHILS % (AUTO) 56.7 % (40.0-70.0); PLATELET COUNT (AUTO) 83 K/uL (130-430); RED BLOOD CELL COUNT(AUTO) 3.55 MIL/uL (4.2-6.2); RED CELL DISTRIBUTION WIDTH 14.2 % (9.0-15.0); WHITE BLOOD COUNT (AUTO) 10.6 K/uL (4.8-10.8)
[2019-02-21 07:35] LABS: ANION GAP 5 (5-15); CALCIUM 9.1 mg/dL (8.4-11.0); CHLORIDE 108 mmol/L (98-107); CREATININE 1.35 mg/dL (0.55-1.30); GLUCOSE 168 mg/dL (70-99); POTASSIUM 3.9 mmol/L (3.5-5.1); SODIUM SERUM 142 mmol/L (136-145); UREA NITROGEN, BLOOD 33 mg/dL (8-21)
[2019-02-21 08:02] VITALS: BP_SYST 134
[2019-02-21] MEDS: ASPIRIN 81 MG TAB.CHEW PO SCH (08:17)
[2019-02-21] MEDS: AZITHROMYCIN 250 MG TABLET PO SCH (08:17)
[2019-02-21] MEDS: SERTRALINE HCL 50 MG TABLET PO SCH (08:17)
[2019-02-21] MEDS: DIVALPROEX SODIUM 250 MG TAB.SR.24H (DEPAKOTE ER) PO SCH ×2 (08:18→20:32)
[2019-02-21] MEDS: ALLOPURINOL 100 MG TABLET (ZYLOPRIM) PO SCH (08:18)
[2019-02-21] MEDS: TAMSULOSIN HCL 0.4 MG CAP PO SCH ×2 (08:18→20:31)
[2019-02-21] MEDS: IPRATROPIUM/ALBUTEROL SULFATE 3 ML AMPUL.NEB (DUONEB) INH SCH ×3 (08:33→21:00)
[2019-02-21 13:03] VITALS: BP_SYST 144
[2019-02-21 16:40] VITALS: BP_SYST 147
[2019-02-21] MEDS: QUEtiapine FUMARATE 25 MG TABLET PO SCH (17:28)
[2019-02-21 20:00] VITALS: BP_SYST 155
[2019-02-21] MEDS: ATORVASTATIN 20 MG TABLET PO SCH (20:30)
[2019-02-21] MEDS: LOSARTAN POTASSIUM 50 MG TABLET (COZAAR) PO SCH (20:31)
[2019-02-21] MEDS: cefTRIAXone 1 GM in D5W 50 ML IV SCH (22:36)
[2019-02-22 01:04] VITALS: BP_SYST 155
[2019-02-22] MEDS: LEVOTHYROXINE SODIUM 0.1 MG TABLET PO SCH (06:45)
[2019-02-22] MEDS: GLIMEPIRIDE 2 MG TABLET PO SCH (06:46)
[2019-02-22 08:00] VITALS: BP_SYST 126
[2019-02-22] MEDS: IPRATROPIUM/ALBUTEROL SULFATE 3 ML AMPUL.NEB (DUONEB) INH SCH (08:15)
[2019-02-22] MEDS: AZITHROMYCIN 250 MG TABLET PO SCH (08:50)
[2019-02-22] MEDS: SERTRALINE HCL 50 MG TABLET PO SCH (08:50)
[2019-02-22] MEDS: DIVALPROEX SODIUM 250 MG TAB.SR.24H (DEPAKOTE ER) PO SCH (08:50)
[2019-02-22] MEDS: ALLOPURINOL 100 MG TABLET (ZYLOPRIM) PO SCH (08:50)
[2019-02-22] MEDS: ASPIRIN 81 MG TAB.CHEW PO SCH (08:50)
[2019-02-22] MEDS: TAMSULOSIN HCL 0.4 MG CAP PO SCH (08:50)
[2019-02-22 12:00] VITALS: BP_SYST 148
== END 2019-02-22 12:30 | DRG 192 ==
LOC: SED 16:07 → STU 17:56
PROVIDERS: ADMIT Internal Medicine; ATTEND Internal Medicine
DX: J44.1 Chronic obstructive pulmonary disease with (acute) exacerbation (principal); E11.22 Type 2 diabetes mellitus with diabetic chronic kidney disease; E11.65 Type 2 diabetes mellitus with hyperglycemia; I13.10 Hypertensive heart and chronic kidney disease without heart failure, with stage 1 through stage 4 chronic kidney disease, or unspecified chronic kidney disease; F31.9 Bipolar disorder, unspecified; E66.01 Morbid (severe) obesity due to excess calories; E78.5 Hyperlipidemia, unspecified; M10.9 Gout, unspecified; N40.0 Benign prostatic hyperplasia without lower urinary tract symptoms; E03.9 Hypothyroidism, unspecified; E11.42 Type 2 diabetes mellitus with diabetic polyneuropathy; F03.90 Unspecified dementia, unspecified severity, without behavioral disturbance, psychotic disturbance, mood disturbance, and anxiety; G89.29 Other chronic pain; H91.90 Unspecified hearing loss, unspecified ear; N18.2 Chronic kidney disease, stage 2 (mild); J40 Bronchitis, not specified as acute or chronic; D69.6 Thrombocytopenia, unspecified; Z79.899 Other long term (current) drug therapy; Z79.82 Long term (current) use of aspirin; Z86.73 Personal history of transient ischemic attack (TIA), and cerebral infarction without residual deficits; Z87.891 Personal history of nicotine dependence; Z68.35 Body mass index [BMI] 35.0-35.9, adult
CPT/HCPCS: 36415; 71045; 80048; 80053; 81000-TC; 82962; 83036; 84443-TC; 84484; 85025; 93005; 94640; 99285; G0378; J0696; J2930; J7060; J7613; J7620; Q0144